=== PATIENT | male | born 1970 | race Caucasian/White ===

== ENCOUNTER 2020-03-03 10:42 | Emergency (ER) | payer SELFPAY ==
--- NOTE | 2020-03-03 10:57 | XR_ITS ---
WS: [id number] Right hand, 3 views, 03/03/2020 Clinical Data: injury Comparison: Right hand, 04/03/2019 Findings: There is a comminuted fracture of the base of the right fifth metacarpal which is nondispla sky. No other fractures are seen. The joint spaces are normal. There is soft tissue swelling over the fracture site. XR/XR hand RT min 3V* [id number] Impression: Comminuted fracture of base of right fifth metacarpal.
== END 2020-03-03 11:00 | disposition left against medical advice (07) ==
LOC: ER 11:21
PROVIDERS: Emergency Provider Emergency Medicine
DX: Z53.21 Procedure and treatment not carried out due to patient leaving prior to being seen by health care provider (principal)
CPT/HCPCS: 73130; 99281

== ENCOUNTER 2020-03-03 15:21 | Emergency (ER) | payer SELFPAY ==
[2020-03-03 15:32] VITALS: BP 129/66; PULSE 99; RESP 18; TEMP 36.8; O2SAT 97; BMI 25.0
--- NOTE | 2020-03-03 15:53 | W.ED.EXTPRO ---
HPI - Extremity Problem General: Chief complaint: Extremity Injury, Upper Stated complaint: arm pain Time Seen by Provider: 03/03/20 15:52 History of Present Illness: HPI Narrative: Patient is a 49-year-old male who comes to the ED with right hand pain. Injury occurred 1 week ago. Patient states he was getting out of the top bunk bed of shelter and fell and he landed on his right fist. Associated symptoms: Deny chest pain, fever(s) or rash Review of Systems Const: Denies: fever(s), chills or fatigue Eyes: Denies: change in vision or eye discomfort ENMT: Denies: throat pain, odynophagia, nasal discharge or nasal congestion Card: Denies: chest pain, palpitations, edema, swelling of feet/ankles, dyspnea on exertion or orthopnea Resp: Denies: dyspnea, productive cough or non-productive cough GI: Denies: abdominal pain, nausea, vomiting, diarrhea, constipation or hematochezia : Denies: flank pain, difficulty urinating, dysuria or hematuria Musc: Reports: extremity pain (right hand pain); Denies: neck pain, back pain or extremity swelling Skin/Breast: Denies: rash or new lesions Neuro: Denies: headache(s), numbness in extremities or weakness in extremities Physical Exam Const: COMMON NORMALS: no acute distress, patient oriented x3 and alert GENERAL APPEARANCE: cooperative and comfortable HENMT: COMMON NORMALS: normocephalic HEAD & SCALP: normocephalic MOUTH: Normal oral and palatal mucosa present THROAT: posterior oropharynx normal and uvula midline Neck/C-Spine: COMMON NORMALS: supple GENERAL: Yes normal visual inspection Resp: COMMON NORMALS: normal respiratory effort, No retractions, No use of accessory muscles and clear to auscultation bilaterally AUSCULTATION: clear to auscultation bilaterally Cardio: COMMON NORMALS: regular rate, regular rhythm, S1 normal heart sound present, S2 normal heart sound present, No gallops present (Cardio), No clicks present (Cardio), No murmurs present (Cardio) and Peripheral pulses 2+ throughout RATE: regular rate RHYTHM: regular rhythm HEART SOUNDS: S1 normal heart sound present and S2 normal heart sound present PERIPHERAL PULSES: Peripheral pulses 2+ throughout GI: COMMON NORMALS: Normal to inspection, nondistended, normoactive bowel sounds present, Soft to palpation, non-tender and no masses PALPATION: Yes Soft to palpation : COMMON NORMALS: Yes no CVA tenderness BLADDER/KIDNEY EXAM: Yes no CVA tenderness Back/Pelvis: COMMON NORMALS: no CVA tenderness Extremity: GENERAL: Yes normal exam except as noted RIGHT UPPER EXTREMITY: Yes hand & digits Right hand and digits: Yes inspection (swelling on palmar hand just below 5th digit.), Yes palpation (tender on hand) and Yes neurovascular exam (intact) Neuro: COMMON NORMALS: patient oriented x3 and moves all extremities SENSORIUM/ORIENTATION: Yes alert Skin: COMMON NORMALS: no rashes or lesions noted GENERAL SKIN EXAM: no rashes or lesions noted and dry skin Course Vital Signs: Vital signs: Vital Signs Temperature 98.3 F 03/03/20 15:32 Pulse Rate 101 H 03/03/20 16:40 Respiratory Rate 14 03/03/20 16:40 Blood Pressure 147/74 03/03/20 16:40 Pulse Oximetry 95 03/03/20 16:40 MDM - Extremity (Nontraumatic) MDM Narrative: Medical decision making narrative: Patient is a 49-year-old male comes to the ED with right hand pain. X-ray showed boxer fracture. Patient was put in an ulnar gutter splint and an Ortho referral was made with case management. Patient was given a written prescription for hydrocodone and Zofran for nausea. Imaging Data^: Xray Ortho: Attestation: I personally reviewed and interpreted this imaging study as follows: Radiologist's impression: [place] [address] XRay Report Signed Patient: Aeln Sage Unit #: [id number] : 1970 Age/Sex: 49 / M ADM Date: 03/03/20 Loc: ER Room/Bed: Attending Dr: Ordering Provider/Ordering MD: Bárbara Calderon MD Date of Service: 03/03/20 Procedure(s): XR hand RT min 3V* [id number] Accession Number(s): [id number] Report Number: [id number] WS: [id number] Right hand, 3 views, 03/03/2020 Clinical Data: injury Comparison: Right hand, 04/03/2019 Findings: There is a comminuted fracture of the base of the right fifth metacarpal which is nondisplaced. No other fractures are seen. The joint spaces are normal. There is soft tissue swelling over the fracture site. XR/XR hand RT min 3V* [id number] Impression: Comminuted fracture of base of right fifth metacarpal. Dictated By: Mai Rajput MD Signed By: Mai Rajput MD Signed Date/Time: 03/03/20 1343 DD/ 1342 Discharge Plan Discharge Patient Disposition: Home, Self-Care Clinical Impression: Boxer's fracture Qualifiers: Encounter type: initial encounter Fracture type: closed Qualified Code(s): S62.339A - Displaced fracture of neck of unspecified metacarpal bone, initial encounter for closed fracture Condition: Stable Prescriptions: New Zofran 4 mg tablet 4 mg PO Q6H PRN (Reason: nausea and vomiting) Qty: 14 RF: 0 Discharge Orders: Discharge Order (Routine); Ordered 03/03/20 Ordered By: Nicholas Jack Discharge Diet: Regular Discharge Activity: Limit activity as instructed Patient Instructions: Boxer Fracture (ED) Activity Restrictions/Additional Instructions: Follow-up with medical provider as directed. [facility] ortho should be contacting you the next several days to setup an appointment. Take medications as prescribed. Return to the ER or your medical provider if condition worsens. Please read and understand discharge instructions. If any questions, please ask. Discharge Date/Time: 03/03/20 16:42 Coding Level of Care Code ED [employer] Off Bearer for [facility] Fwlex Exam Comprehensive
[2020-03-03] MEDS: ondansetron 4 MG Tablet PO (16:31)
[2020-03-03] MEDS: HYDROcodone-acetaminophen 7.5-325 mg Tablet 1 TAB PO (16:31)
[2020-03-03 16:40] VITALS: BP 147/74; PULSE 101; RESP 14; O2SAT 95
--- NOTE | 2020-03-04 08:51 | DCPLANNER ---
Addendum entered by Maricarmen Tanner 03/04/20 15:29: Pat from ortho called manager case stating that clinic was not able to reach patient at this time, and unable to leave a voicemail. No appointment has been scheduled at this time, due to not being able to reach patient. Original Note: business area manager had message to schedule a follow up appointment for patient with ortho. business area manager called the ortho clinic, spoke with Pat, gave clinic patients information. business area manager was told that patients information would be printed and reviewed. Clinic will call patient with appointment information.
== END 2020-03-03 16:42 | disposition home or self-care (01) ==
PROVIDERS: Emergency Provider Physician Assistant
DX: S62.346A Nondisplaced fracture of base of fifth metacarpal bone, right hand, initial encounter for closed fracture (principal); W06.XXXA Fall from bed, initial encounter; Y92.143 Cell of prison as the place of occurrence of the external cause
CPT/HCPCS: 12345; 29125; 99281; 99283; A4590; Q0162

== ENCOUNTER 2020-08-15 11:43 | Emergency (ER) | payer SELFPAY ==
[2020-08-15 11:52] VITALS: BP 162/117; PULSE 85; RESP 14; TEMP 36.8; O2SAT 100; BMI 28.2
--- NOTE | 2020-08-15 12:07 | XRR_ITS ---
PROCEDURE INFORMATION: Exam: XR Right Wrist Exam date and time: 08/15/2020 12:12 PM Age: 50 years old Clinical indication: Pain; Hand and wrist; Right; Additional info: Wrist pain TECHNIQUE: Imaging protocol: XR Right wrist. Views: Frontal, lateral, and oblique views. COMPARISON: CR XR hand RT min 3V* [id number] 03/03/2020 11:24 AM FINDINGS: Bones/joints: Acute fracture of the dorsal medial distal 5th metacarpal metaphysis extending into the anterolateral metadiaphysis with minimal displacement. Healed proximal 5th metacarpal intra-articular fracture. 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 The radiocarpal, intercarpal and carpometacarpal alignment is otherwise unremarkable. 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 Soft tissues: Moderate dorsomedial metacarpal soft tissue swelling. No ectopic gas or foreign body identified. XR/XR wrist RT min 3V* [id number] IMPRESSION: 1. Acute fracture distal 5th metacarpal. 2. Healed proximal 5th metacarpal intra-articular fracture. 3. 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
--- NOTE | 2020-08-15 12:11 | XRR_ITS ---
PROCEDURE INFORMATION: Exam: XR Right Hand Exam date and time: 08/15/2020 12:27 PM Age: 50 years old Clinical indication: Pain; Hand and wrist; Right; Additional info: RT hand pain TECHNIQUE: Imaging protocol: XR Right hand. Views: Frontal, lateral, and oblique views. COMPARISON: CR XR hand RT min 3V* [id number] 03/03/2020 11:24 AM FINDINGS: Bones/joints: Acute minimally displaced fracture of the distal 5th metacarpal. Healed chronic intra-articular fracture of the 5th carpometacarpal articulation with secondary osteoarthritis. Soft tissues: Dorsomedial soft tissue swelling of the hand. XR/XR hand RT min 3V* [id number] IMPRESSION: 1. Acute minimally displaced fracture distal 5th metacarpal. Please see the right wrist radiographs report of the same date for additional findings. 2. Healed chronic intra-articular fracture 5th carpometacarpal articulation with secondary osteoarthritis.
--- NOTE | 2020-08-15 12:22 | W.ED.EXTPRO ---
HPI - Extremity Problem General: Chief complaint: Extremity Problem,Nontraumatic Stated complaint: right hand injury Time Seen by Provider: 08/15/20 11:58 Source: patient Mode of arrival: ambulatory Limitations: no limitations History of Present Illness: HPI Narrative: 50-year-old male patient presents to the emergency department with right hand and wrist pain. He reports utilizing/swinging a hammer 2 days ago at onset of pain. He reports previous fracture in January 2020, sustained boxer's fracture to the same hand. He denies injury or trauma that would have led to today's pain. States has not taken anything for pain, he reports pain and swelling to the area. MD Complaint: extremity pain (rt hand and rt wrist) Location: right and upper extremity Severity scale (1-10): 6 Quality: aching and dull Radiation: distal Relieving factors: immobilization and rest Exacerbating factors: exertion Associated symptoms: Reports no associated symptoms; Deny chest pain, fever(s) or rash Review of Systems General: Reports: 10 or more systems reviewed and unremarkable except in HPI and below Const: Denies: fever(s), chills or diaphoresis Eyes: Denies: blurry vision or eye redness ENMT: Denies: throat pain, dental pain or disequilibrium Card: Denies: chest pain, palpitations or irregular heart rhythm Resp: Denies: dyspnea, productive cough, non-productive cough or wheezing GI: Denies: abdominal pain, nausea or vomiting : Denies: difficulty urinating, dysuria or difficulty starting urination Musc: Reports: extremity pain (rt hand) and extremity swelling (rt hand and wrist); Denies: neck pain, back pain, joint pain or joint warmth Skin/Breast: Denies: rash or pruritus Neuro: Denies: headache(s), weakness in extremities or behavioral changes Psych: Denies: anxiety or depression Vishnu/Lymph: Denies: easy bruising Physical Exam Const: COMMON NORMALS: no acute distress, patient oriented x3, healthy appearing and alert GENERAL APPEARANCE: cooperative, comfortable and well hydrated HENMT: COMMON NORMALS: normocephalic, Normal external nose present and moist oral mucous membranes HEAD & SCALP: normocephalic NOSE: Normal external nose present Eye: COMMON NORMALS: Equal, round and reactive pupils present and EOMs intact bilaterally GENERAL EYE: appearance normal, both eyes and all related structures PUPIL: Yes Equal, round and reactive pupils present Neck/C-Spine: COMMON NORMALS: full ROM and no lymphadenopathy GENERAL: Yes normal visual inspection and Yes trachea midline CERVICAL SPINE: Yes cervical ROM normal Lymph: LYMPHATIC: no lymphadenopathy noted Chest: COMMONS NORMALS: normal inspection of the chest Resp: COMMON NORMALS: normal respiratory effort and clear to auscultation bilaterally AUSCULTATION: clear to auscultation bilaterally Cardio: COMMON NORMALS: regular rhythm, S1 normal heart sound present and S2 normal heart sound present RHYTHM: regular rhythm HEART SOUNDS: S1 normal heart sound present and S2 normal heart sound present GI: COMMON NORMALS: Soft to palpation and non-tender INSPECTION: Yes normal to inspection PALPATION: Yes Soft to palpation : COMMON NORMALS: Yes no CVA tenderness BLADDER/KIDNEY EXAM: Yes no CVA tenderness Back/Pelvis: COMMON NORMALS: no CVA tenderness and thoracic and lumbar spine normal to inspection Extremity: COMMON NORMALS: normal to inspection, full ROM and capillary refill normal RIGHT UPPER EXTREMITY: Yes wrist (pain with palpation) Right wrist: Yes inspection, Yes palpation (pain to the dorsal wrist), Yes ROM (supination/pronation intact but with pain) and Yes neurovascular exam (distally intact) and Yes hand & digits Right hand and digits: Yes inspection (edema present to the dorsal hand), Yes palpation (pain dorsally), Yes ROM exam (pain with flexion/extension of the digits), Yes neurovascular exam (distally intact) and Yes tendon exam (intact but with pain) Neuro: COMMON NORMALS: patient oriented x3 and no focal motor deficits SENSORIUM/ORIENTATION: Yes alert Psych: COMMON NORMALS: mental status grossly normal, Normal thought process present and cooperative ACTIVITY/MOTOR BEHAVIOR: Yes appropriate eye contact THOUGHT PROCESS: Normal thought process present Skin: COMMON NORMALS: no rashes or lesions noted and turgor normal GENERAL SKIN EXAM: no rashes or lesions noted and turgor normal Course Vital Signs: Vital signs: Vital Signs Temperature 98.2 F 08/15/20 11:52 Pulse Rate 85 08/15/20 11:52 Respiratory Rate 14 08/15/20 11:52 Blood Pressure 162/117 08/15/20 11:52 Pulse Oximetry 100 08/15/20 11:52 Discharge Plan Discharge Patient Disposition: Home Clinical Impression: Muscle strain of right wrist Qualifiers: Encounter type: initial encounter Qualified Code(s): S66.911A - Strain of unspecified muscle, fascia and tendon at wrist and hand level, right hand, initial encounter Acute wrist pain Qualifiers: Laterality: right Qualified Code(s): M25.531 - Pain in right wrist Condition: Stable Prescriptions: New naproxen 500 mg tablet 500 mg PO Q12H PRN (Reason: pain) Qty: 30 RF: 0 No Action Zofran 4 mg tablet 4 mg PO Q6H PRN (Reason: nausea and vomiting) Qty: 14 RF: 0 Discharge Orders: Discharge ED (Routine); Ordered 08/15/20 Ordered By: Natalie Bang Discharge Diet: Usual diet Discharge Activity: Limit activity as instructed Patient Instructions: Wrist Injury (ED), Splint Care (ED) Activity Restrictions/Additional Instructions: Radiology exam today did not reveal acute fracture, radiology interpretation pending. Follow-up with your primary care provider if not improved in 5 to 7 days Return to the emergency department if you develop worsening pain, increased swelling of the right arm Warm moist compresses several times daily alternate with cool compresses, keep the right upper extremity elevated to help with swelling. Wear Velcro wrist splint to help with pain and swelling. Wear at night and during the day with activity to help with pain Coding Level of Care Code ED Wellness Manager for [facility] Stout Exam Comprehensive
[2020-08-15] MEDS: naproxen 500 mg Tablet PO (12:25)
--- NOTE | 2020-08-16 16:35 | PC.NURSE ---
ANNIKA Estrada had this RN call patient to have him return to the ER to have a splint placed. This RN contacted patient at 0823 but did not answer but message left on phone. Patient called back at 0930 to report he would come back in. ANNIKA Estrada reports patient returned to the ER and she placed a ulnar gutter splint on the patient and sent him back home.
--- NOTE | 2020-08-18 08:26 | DCPLANNER ---
systems software manager had message to schedule a follow up appointment for patient with ortho. systems software manager called the ortho clinic, spoke with Tresa, gave clinic patients information. systems software manager was told that patients information would be printed and reviewed. Clinic will call patient with appointment information.
--- NOTE | 2020-08-20 13:48 | DCPLANNER ---
Patient had a follow up appointment scheduled for 08.19.20 with ortho - patient did attend appointment.
== END 2020-08-15 13:54 | disposition home or self-care (01) ==
PROVIDERS: Emergency Provider Nurse Practitioner Family
DX: S66.911A Strain of unspecified muscle, fascia and tendon at wrist and hand level, right hand, initial encounter (principal); X50.9XXA Other and unspecified overexertion or strenuous movements or postures, initial encounter
CPT/HCPCS: 12345; 29125; 73110; 73130; 99281; 99283

== ENCOUNTER → 2020-09-09 11:38 | Outpatient (BNVA) | payer SELFPAY | PROVIDERS: Visit Provider Orthopaedic Surgery | DX: Z47.89 Encounter for other orthopedic aftercare (principal); S62.308D Unspecified fracture of other metacarpal bone, subsequent encounter for fracture with routine healing; X58.XXXD Exposure to other specified factors, subsequent encounter | CPT/HCPCS: 73130 ==

== ENCOUNTER → 2020-09-30 08:50 | Outpatient (BNVA) | payer SELFPAY | PROVIDERS: Visit Provider Orthopaedic Surgery | DX: S62.396D Other fracture of fifth metacarpal bone, right hand, subsequent encounter for fracture with routine healing (principal); X58.XXXD Exposure to other specified factors, subsequent encounter | CPT/HCPCS: 73130 ==

== ENCOUNTER → 2020-10-23 10:24 | Outpatient (BNVA) | payer SELFPAY | PROVIDERS: Visit Provider Orthopaedic Surgery | DX: Z47.89 Encounter for other orthopedic aftercare (principal); S62.308D Unspecified fracture of other metacarpal bone, subsequent encounter for fracture with routine healing; X58.XXXD Exposure to other specified factors, subsequent encounter | CPT/HCPCS: 73130 ==

== ENCOUNTER 2020-10-29 08:00 | Outpatient (CLI) | payer SELFPAY ==
--- NOTE | 2020-10-29 08:00 | CT_ITS ---
WS: [id number] CT RIGHT HAND HISTORY: S62.308A - Unspecified fracture of other metacarpal bone, initial encounter for closed fract ure Technique: All CT scans at [facility] use at least one of these dose optimization techniq ues: automated exposure control; mA and/or kV adjustment per patient size (includes targeted exams wh ere dose is matched to clinical indication); or iterative reconstruction. DLP: 495.86 mGycm COMPARISON: 10/23/2020 radiographs, 03/03/2020 and 04/03/2019. Oblique fractures again identified through the fifth carpal neck and head. Fracture line is still paz dent although there is partial healing. Deformity from a healing fracture and mild shortening of the metacarpal. There is additional erosive type degenerative changes involving the proximal fifth metacarpal. The ca rpal metacarpal articulation is narrowed with erosive changes involving both the hamate and proximal metacarpal. There was a fracture present and described on 03/03/2020. These changes are new since 04/03. No additional fractures are identified. There are small lucencies in the scaphoid and lunate. No soft tissue edema is evident. CT/CT hand RT wo con* [id number] IMPRESSION: 1. Partially healed oblique fracture distal fifth metacarpal. 2. Erosive changes with joint space narrowing involving the hamate and proxima l fifth metacarpal. Comminuted fracture was present at this location on 03/03/20 20. There may have been a infection or chronic mild osteomyelitis. On the prior study of 04/03/2019 there was a normal articulation at this level. These findin gs are probably all posttraumatic and probably related to posttraumatic arthrit is.
== END 2020-10-29 08:01 | disposition home or self-care (01) ==
LOC: RADWPI 08:04
PROVIDERS: Visit Provider Orthopaedic Surgery
DX: S62.306A Unspecified fracture of fifth metacarpal bone, right hand, initial encounter for closed fracture (principal); X58.XXXA Exposure to other specified factors, initial encounter
CPT/HCPCS: 73200

== ENCOUNTER 2020-12-07 14:13 | Emergency (ER) | payer SELFPAY ==
[2020-12-07 14:20] VITALS: BP 127/90; PULSE 108; RESP 18; O2SAT 97; BMI 29.5
--- NOTE | 2020-12-07 14:26 | XRR_ITS ---
PROCEDURE INFORMATION: Exam: XR Right Hand Exam date and time: 12/07/2020 2:30 PM Age: 50 years old Clinical indication: Pain; Hand; Right; Additional info: Swelling TECHNIQUE: Imaging protocol: XR Right hand. Views: 3 or more views. COMPARISON: No relevant prior studies available. FINDINGS: Bones/joints: No fracture or dislocation. There is focal lucencies along the base of the 5th metacarpal, which may represent cystic subchondral changes of degenerative disease. Osteomyelitis should be considered in the adequate clinical setting. Soft tissues: Swelling of the soft tissues is present. XR/XR hand RT min 3V* [id number] IMPRESSION: Focal lucencies along the base of the 5th metacarpal, which may represent degenerative changes, or osteomyelitis in the adequate clinical setting.
--- NOTE | 2020-12-07 14:26 | W.ED.EXTPRO ---
HPI - Extremity Problem General: Chief complaint: Extremity Injury, Upper Stated complaint: RIGHT HAND INJURY Time Seen by Provider: 12/07/20 14:18 History of Present Illness: HPI Narrative: Patient complains about right hand pain after he fell it pop when he was moving somebody today. He has a history of fractured hand few months ago that is been repaired. MD Complaint: extremity pain and joint swelling Onset (ago): hour(s) Pain Consistency: constant Location: right and upper extremity Severity scale (1-10): 3 Quality: aching Radiation: none Relieving factors: nothing Exacerbating factors: exertion Associated symptoms: Reports no associated symptoms; Deny fever(s) Review of Systems Const: Denies: fever(s) or chills Musc: Reports: extremity pain (Right hand hurts and is swollen patient has follow-up appointment Láz[facility]) and other (Follow-up appointment [place] for looking in hand again) Psych: Denies: anxiety PFSH ED PFSH: Social History Smoking and tobacco status: current some day smoker cigarettes Physical Exam Const: COMMON NORMALS: no acute distress Extremity: RIGHT UPPER EXTREMITY: Yes hand & digits (Fifth metacarpal area swollen tender to touch) Psych: OTHER: Patient appears very fidgety and paranoid. Course Vital Signs: Vital signs: Vital Signs Pulse Rate 108 H 12/07/20 14:20 Respiratory Rate 18 12/07/20 14:20 Blood Pressure 127/90 12/07/20 14:20 Pulse Oximetry 97 12/07/20 14:20 MDM - Extremity (Nontraumatic) MDM Narrative: Medical decision making narrative: Patient is a got up in the left after he accused people of talking about him. Which he accuses girls at the desktop technician also doing that while he said in waiting room.. Anxious paranoid. Patient did not wait to receive x-ray report. Patient left here untreated. Discharge Plan Discharge Patient Disposition: Left Against Medical Advice Condition: Stable Prescriptions: No Action No Known Home Medications RF: 0 Coding Level of Care Code ED Junior Systems Administrator for [facility] Fwd Exam Expanded Problem Focused
--- NOTE | 2020-12-07 14:45 | PC.NURSE ---
patient walked out the department.
== END 2020-12-07 14:48 | disposition left against medical advice (07) ==
LOC: ER 14:55
PROVIDERS: Emergency Provider Nurse Practitioner Family
DX: M79.641 Pain in right hand (principal); Z53.21 Procedure and treatment not carried out due to patient leaving prior to being seen by health care provider; F17.210 Nicotine dependence, cigarettes, uncomplicated
CPT/HCPCS: 73130; 99281

== ENCOUNTER 2021-07-14 22:29 | Emergency (ER) | payer MEDICAID, SELFPAY ==
[2021-07-14 22:35] VITALS: BP 173/110; PULSE 99; RESP 16; TEMP 36.7; O2SAT 97; BMI 27.8
--- NOTE | 2021-07-14 22:52 | ED_ITS ---
HPI - Wound/Laceration General: Chief Complaint: Wound/Laceration Stated Complaint: Injury Lt Hand Finger Time Seen by Provider: 07/14/21 22:45 Source: patient Mode of arrival: ambulatory Limitations: no limitations History of Present Illness: HPI narrative: 51-year-old male states that he was cutting plastic bottle roughly 30 minutes ago and slipped and lacerated his left index finger he does have a 1 cm laceration at the base of his index finger. He denies any loss sensation or strength denies any other injuries last tetanus was within 5 years. Associated symptoms: Denies chills, fever(s), nausea or vomiting Review of Systems Const: Denies: fever(s), chills, body aches or change in appetite Eyes: Denies: blurry vision or eye discomfort ENMT: Denies: throat pain or dental pain Card: Denies: chest pain Resp: Denies: dyspnea GI: Denies: abdominal pain, nausea, vomiting or diarrhea : Denies: dysuria Musc: Reports: extremity pain Skin/Breast: Denies: rash Neuro: Denies: headache(s) Psych: Denies: depression Vishnu/Lymph: Denies: easy bruising All/Imm: Denies: urticaria PFSH ED PFSH: Social History Smoking and tobacco status: current some day smoker cigarettes Physical Exam Const: COMMON NORMALS: no acute distress, patient oriented x3 and healthy appe aring HENMT: COMMON NORMALS: normocephalic and atraumatic HEAD & SCALP: normocephalic and atraumatic Eye: COMMON NORMALS: Equal, round and reactive pupils present and EOMs intact bilaterally PUPIL: Yes Equal, round and reactive pupils present Neck/C-Spine: COMMON NORMALS: full ROM and supple Chest: COMMONS NORMALS: normal inspection of the chest and normal palpation of entire chest wall Resp: COMMON NORMALS: normal respiratory effort, No retractions, No use of accessory muscles and clear to auscultation bilaterally AUSCULTATION: clear to auscultation bilaterally Cardio: COMMON NORMALS: regular rate, regular rhythm and No murmurs present (Cardio) RATE: regular rate RHYTHM: regular rhythm GI: COMMON NORMALS: Normal to inspection, nondistended, normoactive bowel sounds present, Soft to palpation, non-tender and no masses PALPATION: Yes Soft to palpation Extremity: COMMON NORMALS: normal to inspection and full ROM NARRATIVE EXTREMITY EXAM: 1 cm laceration to base of left index finger over the dorsum of the hand he has full sensation and strength intact distally Neuro: COMMON NORMALS: patient oriented x3, moves all extremities and no focal motor deficits Psych: COMMON NORMALS: mental status grossly normal, Normal thought process present and cooperative THOUGHT PROCESS: Normal thought process present Skin: COMMON NORMALS: no rashes or lesions noted and no wounds GENERAL SKIN EXAM: no rashes or lesions noted Procedures Laceration Laceration 1: Site: upper extremity and hand Side (If applicable): left Size (cm): 1 Description: linear Depth: simple, single layer Local Anesthetic: lidocaine 1% Amount of anesthesia used (mL): 5 Pre-repair: wound explored and irrigated extensively Skin layer closed with: nylon Size (cm): 5-0 Number of sutures: 3 Technique: simple, interrupted Course Vital Signs: Vital signs: Vital Signs Temperature 98.0 F 07/14/21 22:35 Pulse Rate 99 07/14/21 22:35 Respiratory Rate 16 07/14/21 22:35 Blood Pressure 173/110 07/14/21 22:35 Pulse Oximetry 97 07/14/21 22:35 MDM - Wound/Laceration MDM Narrative: Medical decision making narrative: Patient presents with finger laceration repaired with sutures he is well-appearing here he said the sutures removed in 7 days watch for any signs of infection wound was irrigated thoroughly. No signs of tendon involvement he is stable for discharge return if worsening. Discharge Plan Discharge Patient Disposition: Home Clinical Impression: Laceration Condition: Stable Prescriptions: No Action No Known Home Medications RF: 0 Discharge Orders: Discharge ED (Routine); Ordered 07/14/21 Ordered By: Bárbara Calderon Discharge Diet: Advance as tolerated Discharge Activity: Resume usual activity Patient Instructions: Laceration (ED) Activity Restrictions/Additional Instructions: suture removal in 7 days return if any signs of infection Coding Level of Care Code ED Emergency Room Clerk for Erickson Stout
--- NOTE | 2021-07-14 23:13 | PC.NURSE ---
Nonadherent dressing and Kerlix applied. Pt tolerated well. Wound care discussed; verbalized understanding.
[2021-07-14 23:14] VITALS: BP 171/99; PULSE 80; RESP 16; O2SAT 98
== END 2021-07-14 23:15 | disposition home or self-care (01) ==
PROVIDERS: Emergency Provider Emergency Medicine
DX: S61.211A Laceration without foreign body of left index finger without damage to nail, initial encounter (principal); F17.210 Nicotine dependence, cigarettes, uncomplicated
CPT/HCPCS: 12001; 99282

== ENCOUNTER 2021-08-04 16:34 | Emergency (ER) | payer MEDICAID, SELFPAY ==
[2021-08-04 16:39] VITALS: BP 117/78; PULSE 65; RESP 18; TEMP 36.4; O2SAT 93; BMI 22.4
--- NOTE | 2021-08-04 16:42 | ECG_ITS ---
[facility] Test Date: 2021-08-04 Pat Name: Alen Sage Department: Room: Gender: Male Post Closer: : 1970 Requested By: Jesse Green Order Number: [id number] Tracy MD: Aubree Nguyen M.D. Measurements Intervals [place] Rate: 65 P: 87 MN: 160 QRS: 84 QRSD: 106 T: 84 QT: 457 QTc: 476 Interpretive Statements SINUS RHYTHM PROLONGED QT INTERVAL Compared to ECG 10/28/2017 15:13:42 Prolonged QT interval now present Electronically Signed On 08-05-2021 0:15:01 PREPARATION SUPERVISOR FREEZING by Aubree Nguyen M.D. [id number]
--- NOTE | 2021-08-04 16:42 | CTR_ITS ---
PROCEDURE INFORMATION: Exam: CT Head Without Contrast Exam date and time: 08/04/2021 4:42 PM Age: 51 years old Clinical indication: Altered mental status/memory loss TECHNIQUE: Imaging protocol: Computed tomography of the head without contrast. Radiation optimization: All CT scans at this facility use at least one of these dose optimization techniques: automated exposure control; mA and/or kV adjustment per patient size (includes targeted exams where dose is matched to clinical indication); or iterative reconstruction. COMPARISON: CT head wo con* [id number] 09/24/2016 9:14 PM RADIATION DOSE METRICS: Total DLP (mGy-cm): 1660.09 FINDINGS: Brain: Normal. No hemorrhage. Unremarkable white matter. No mass effect. Cerebral ventricles: No ventriculomegaly. Paranasal sinuses: Visualized sinuses are unremarkable. No fluid levels. Mastoid air cells: Visualized mastoid air cells are well aerated. Bones/joints: Unremarkable. No acute fracture. Soft tissues: Unremarkable. CT/CT head wo con* [id number] IMPRESSION: No acute intracranial abnormality.
--- NOTE | 2021-08-04 16:42 | XRR_ITS ---
PROCEDURE INFORMATION: Exam: XR Chest Exam date and time: 08/04/2021 4:42 PM Age: 51 years old Clinical indication: Cough and dyspnea; Additional info: Dyspnea/cough TECHNIQUE: Imaging protocol: XR of the chest. Views: 1 view. COMPARISON: CR Chest 1 [place] [id number] 10/28/2017 3:29 PM FINDINGS: Lungs: Subtle opacity at the right lung base representing infiltrates. Pleural spaces: Unremarkable. No pleural effusion. No pneumothorax. Heart/Mediastinum: Unremarkable. No cardiomegaly. Bones/joints: Unremarkable. XR/XR chest 1V portable [id number] IMPRESSION: Subtle opacity at the right lung base representing infiltrates.
--- NOTE | 2021-08-04 16:50 | PC.PHAR ---
pt is intoxicated and unable to verify medications-no meds pull up on ext med history [facility] pharmacy states they last filled in 2018 for the pt
[2021-08-04 16:51] VITALS: BP 138/91; PULSE 69; RESP 19; O2SAT 100
--- NOTE | 2021-08-04 16:53 | PC.NURSE ---
Arouses with painful stimuli
--- NOTE | 2021-08-04 17:34 | ED_ITS ---
Documented by User: Jesse Mcqueen DO 08/06/21 07:51 HPI - Alcohol General: Chief Complaint: Altered Mental Status Stated Complaint: ETOH Time Seen by Provider: 08/04/21 16:38 History of Present Illness: HPI narrative: 51-year-old male heavily intoxicated presents to the emergency room after his family called EMS because he had passed on the front yard he was unable to stand he was poorly responsive. In the ER he will respond to questions and mumble a few answers he admits to drinking very heavily today he denies any suicidal or homicidal ideation just by shaking his head. Other than that he is not very verbal. MD complaint: alcohol intoxication Chronic alcohol use: Yes Previous visits for alcohol intoxication: Yes Recent trauma: No Associated symptoms: Deny abdominal pain, depression, diaphoresis, hematemesis, involuntary movements, melena, nausea, seizure-like activity, suicidal ideation, syncope or vomiting Treatments prior to arrival: none Review of Systems General: Reports: Other (Minimal review of systems some from the EMS. Patient markedly intoxicated.) Const: Denies: diaphoresis Card: Denies: syncope GI: Denies: abdominal pain, nausea, vomiting, hematemesis or melena Neuro: Denies: seizure-like activity or involuntary movements Psych: Denies: depression or suicidal ideation [facility] ED PFSH: Medical History (Updated 08/06/21 @ 07:49 by Jesse Mcqueen DO) Alcoholic intoxication (Unknown) Hypertension Methamphetamine abuse Surgical History (Updated 08/06/21 @ 07:50 by Jesse Mcqueen DO) No significant past surgical history Social History Smoking and tobacco status: current some day smoker cigarettes Physical Exam HENMT: COMMON NORMALS: normocephalic, atraumatic and hearing grossly normal bilaterally HEAD & SCALP: normocephalic and atraumatic Neck/C-Spine: COMMON NORMALS: no JVD Resp: COMMON NORMALS: normal respiratory effort, No retractions, No use of accessory muscles and clear to auscultation bilaterally AUSCULTATION: clear to auscultation bilaterally Cardio: COMMON NORMALS: no JVD, regular rate, regular rhythm and No murmurs present (Cardio) RATE: regular rate RHYTHM: regular rhythm GI: COMMON NORMALS: Soft to palpation and No hepatosplenomegaly present AUSCULTATION: Yes normoactive bowel sounds PALPATION: Yes Soft to palpation, No Tenderness to palpation present (GI), No Guarding due to palpation present (GI) and Yes No hepatosplenomegaly present Extremity: COMMON NORMALS: normal to inspection, capillary refill normal, no clubbing, cyanosis or edema, no calf tenderness and no pedal edema Skin: COMMON NORMALS: no rashes or lesions noted GENERAL SKIN EXAM: no rashes or lesions noted Course Vital Signs: Vital signs: Vital Signs Temperature 97.6 F 08/04/21 16:39 Pulse Rate 68 08/04/21 22:45 Respiratory Rate 18 08/04/21 22:45 Blood Pressure 140/86 08/04/21 22:45 Pulse Oximetry 100 08/04/21 22:45 MDM - Alcohol MDM Narrative: Medical decision making narrative: Care turned over to Dr. Calderon at change of see his note final diagnosis and disposition. Lab Data: Labs: Lab Results 08/04/21 08/04/21 08/04/21 17:42 17:42 17:42 WBC 9.7 10^3/uL 10^3/ uL (4.0-10.0) RBC 4.48 10^6/uL 10^6 /uL (4.1-5.3) Hgb 13.8 g/dL g/dL (11.7-16.6) Hct 42.1 % % (42.0-52.0) MCV 94.0 fl fl (80-94) MCH 30.8 pg pg (28.0-34.0) MCHC 32.8 g/dL g/dL (30.0-36.0) RDW 12.9 % % (12.1-15.1) Plt Count 283 10^3/cmm 10^3 /cmm (130-400) MPV 9.9 fL fL (7.4-10.4) Neut % (Auto) 60.9 % % Lymph % (Auto) 33.2 % % [place] % (Auto) 4.9 % % Eos % (Auto) 0.4 % % Baso % (Auto) 0.3 % % Neut # (Auto) 5.88 10^3/uL 10^3 /uL (1.8-7.7) Lymph # (Auto) 3.2 10^3/uL 10^3/ uL (0.8-4.8) [place] # (Auto) 0.5 10^3/uL 10^3/ uL (0.2-0.9) Eos # (Auto) 0.0 10^3/uL 10^3/ uL (0.0-0.8) Baso # (Auto) 0.0 10^3/uL 10^3/ uL (0.0-0.1) Nucleated RBC % (a uto) 0 % % Nucleated RBCs # 0.0 /100WBC /100W BC Sodium 139 mmol/L mmol/L (136-145) Potassium 3.8 mmol/L mmol/L (3.5-5.1) Chloride 104 mmol/L mmol/L (98-107) Carbon Dioxide 20 mmol/L L mmol/ L (22-29) Anion Gap 18.8 (5-19) BUN 11 mg/dL mg/dL (6-20) Creatinine 1.2 mg/dL mg/dL (0.7-1.2) GFR Calculation 64.4 mL/min L mL/ min (90-130) Glucose 109 mg/dL mg/dL (65-115) Calculated Osmolal ity 288 mOsm/kg mOsm/ kg (285-295) Lactic Acid 1.9 mmol/L mmol/L (0.5-2.2) Calcium 8.2 mg/dL L mg/dL (8.5-10.5) Total Bilirubin 0.2 mg/dL mg/dL (0.15-1.2) AST 42 U/L H U/L (0-40) ALT 62 U/L H U/L (0-41) Alkaline Phosphata se 108 IU/L IU/L (40-130) Troponin T Baselin e Troponin T 120 Min [place] Troponin T Total Protein 6.7 g/dL g/dL (6.6-8.7) Albumin 4.2 g/dL g/dL (3.5-5.2) Globulin 2.5 g/dL g/dL (1.3-4.6) Lipase 23 U/L U/L (13-60) Urine Color Urine Appearance Urine pH Ur Specific Gravit y Urine Protein Urine Glucose (UA) Urine Ketones Urine Blood Urine Nitrate Urine Bilirubin Urine Urobilinogen Ur Leukocyte Veronique ase Salicylates < 0.3 mg/dL L mg/ dL (3-10) Urine Opiates Scre en Acetaminophen < 5.0 ug/mL L ug/ mL (10-30) Ur Barbiturates Sc reen Ur Phencyclidine S crn Ur Amphetamines Sc reen U Benzodiazepines Scrn Urine Cocaine Scre en U Marijuana (THC) Screen Ethyl Alcohol 08/04/21 08/04/21 08/04/21 17:42 17:42 20:35 WBC RBC Hgb Hct MCV MCH MCHC RDW Plt Count MPV Neut % (Auto) Lymph % (Auto) [place] % (Auto) Eos % (Auto) Baso % (Auto) Neut # (Auto) Lymph # (Auto) [place] # (Auto) Eos # (Auto) Baso # (Auto) Nucleated RBC % (a uto) Nucleated RBCs # Sodium Potassium Chloride Carbon Dioxide Anion Gap BUN Creatinine GFR Calculation Glucose Calculated Osmolal ity Lactic Acid Calcium Total Bilirubin AST ALT Alkaline Phosphata se Troponin T Baselin e 9 ng/L ng/L (0-15) Troponin T 120 Min [place] Troponin T Total Protein Albumin Globulin Lipase Urine Color Yellow (Yellow) Urine Appearance Clear (CLEAR) Urine pH 5 (5-7) Ur Specific Gravit y 1.015 (1.005-1.030) Urine Protein Neg (Negative) Urine Glucose (UA) Norm (Normal) Urine Ketones Negative (Negative) Urine Blood Neg (Negative) Urine Nitrate Negative (Negative) Urine Bilirubin Neg (Negative) Urine Urobilinogen Norm mg/dL mg/dL (Negative) Ur Leukocyte Veronique ase Negative (Negative) Salicylates Urine Opiates Scre en Acetaminophen Ur Barbiturates Sc reen Ur Phencyclidine S crn Ur Amphetamines Sc reen U Benzodiazepines Scrn Urine Cocaine Scre en U Marijuana (THC) Screen Ethyl Alcohol 246 mg/dL H mg/dL (0-10) 08/04/21 08/04/21 20:35 20:36 WBC RBC Hgb Hct MCV MCH MCHC RDW Plt Count MPV Neut % (Auto) Lymph % (Auto) [place] % (Auto) Eos % (Auto) Baso % (Auto) Neut # (Auto) Lymph # (Auto) [place] # (Auto) Eos # (Auto) Baso # (Auto) Nucleated RBC % (a uto) Nucleated RBCs # Sodium Potassium Chloride Carbon Dioxide Anion Gap BUN Creatinine GFR Calculation Glucose Calculated Osmolal ity Lactic Acid Calcium Total Bilirubin AST ALT Alkaline Phosphata se Troponin T Baselin e Troponin T 120 Min [place] 7.72 ng/L ng/L (0-15) Delta Troponin T -1.28 ABS# L ABS# (0-10) Total Protein Albumin Globulin Lipase Urine Color Urine Appearance Urine pH Ur Specific Gravit y Urine Protein Urine Glucose (UA) Urine Ketones Urine Blood Urine Nitrate Urine Bilirubin Urine Urobilinogen Ur Leukocyte Veronique ase Salicylates Urine Opiates Scre en Negative ng/mL ng /mL (Negative) Acetaminophen Ur Barbiturates Sc reen Negative ng/mL ng /mL (Negative) Ur Phencyclidine S crn Negative ng/mL ng /mL (Negative) Ur Amphetamines Sc reen Positive ng/mL H ng/mL (Negative) U Benzodiazepines Scrn Negative ng/mL ng /mL (Negative) Urine Cocaine Scre en Negative ng/mL ng /mL (Negative) U Marijuana (THC) Screen Negative ng/mL ng /mL (Negative) Ethyl Alcohol Discharge Plan Discharge Patient Disposition: Home Clinical Impression: Alcoholic intoxication, Methamphetamine abuse Condition: Stable Prescriptions: No Action Unable to Assess RF: 0 Discharge Orders: Discharge ED (Routine); Ordered 08/04/21 Ordered By: Bárbara Calderon Discharge Diet: Advance as tolerated Discharge Activity: Resume usual activity Patient Instructions: Alcohol Intoxication (ED) Coding Level of Care Code ED Fuel Conversion Technician for Chg Fwd Documented by User: Bárbara Calderon MD 08/04/21 22:04 HPI - Alcohol General: Chief Complaint: Altered Mental Status Stated Complaint: ETOH Time Seen by Provider: 08/04/21 16:38 PFSH ED PFSH: Medical History (Updated 08/06/21 @ 07:49 by Jesse Mcqueen DO) Alcoholic intoxication (Unknown) Hypertension Methamphetamine abuse Surgical History (Updated 08/06/21 @ 07:50 by Jesse Mcqueen DO) No significant past surgical history Social History Smoking and tobacco status: current some day smoker cigarettes Course Vital Signs: Vital signs: Vital Signs Temperature 97.6 F 08/04/21 16:39 Pulse Rate 68 08/04/21 22:45 Respiratory Rate 18 08/04/21 22:45 Blood Pressure 140/86 08/04/21 22:45 Pulse Oximetry 100 08/04/21 22:45 MDM - Alcohol MDM Narrative: Medical decision making narrative: Patient presents here with alcohol intoxication along with methamphetamine abuse. Patient is observed here is now ambulatory his mother's came to pick him up and feel he is stable for discharge CT head other blood work is all normal he is to follow-up PCP and return if worsening. Lab Data: Labs: Lab Results 08/04/21 08/04/21 08/04/21 17:42 17:42 17:42 WBC 9.7 10^3/uL 10^3/ uL (4.0-10.0) RBC 4.48 10^6/uL 10^6 /uL (4.1-5.3) Hgb 13.8 g/dL g/dL (11.7-16.6) Hct 42.1 % % (42.0-52.0) MCV 94.0 fl fl (80-94) MCH 30.8 pg pg (28.0-34.0) MCHC 32.8 g/dL g/dL (30.0-36.0) RDW 12.9 % % (12.1-15.1) Plt Count 283 10^3/cmm 10^3 /cmm (130-400) MPV 9.9 fL fL (7.4-10.4) Neut % (Auto) 60.9 % % Lymph % (Auto) 33.2 % % [place] % (Auto) 4.9 % % Eos % (Auto) 0.4 % % Baso % (Auto) 0.3 % % Neut # (Auto) 5.88 10^3/uL 10^3 /uL (1.8-7.7) Lymph # (Auto) 3.2 10^3/uL 10^3/ uL (0.8-4.8) [place] # (Auto) 0.5 10^3/uL 10^3/ uL (0.2-0.9) Eos # (Auto) 0.0 10^3/uL 10^3/ uL (0.0-0.8) Baso # (Auto) 0.0 10^3/uL 10^3/ uL (0.0-0.1) Nucleated RBC % (a uto) 0 % % Nucleated RBCs # 0.0 /100WBC /100W BC Sodium 139 mmol/L mmol/L (136-145) Potassium 3.8 mmol/L mmol/L (3.5-5.1) Chloride 104 mmol/L mmol/L (98-107) Carbon Dioxide 20 mmol/L L mmol/ L (22-29) Anion Gap 18.8 (5-19) BUN 11 mg/dL mg/dL (6-20) Creatinine 1.2 mg/dL mg/dL (0.7-1.2) GFR Calculation 64.4 mL/min L mL/ min (90-130) Glucose 109 mg/dL mg/dL (65-115) Calculated Osmolal ity 288 mOsm/kg mOsm/ kg (285-295) Lactic Acid 1.9 mmol/L mmol/L (0.5-2.2) Calcium 8.2 mg/dL L mg/dL (8.5-10.5) Total Bilirubin 0.2 mg/dL mg/dL (0.15-1.2) AST 42 U/L H U/L (0-40) ALT 62 U/L H U/L (0-41) Alkaline Phosphata se 108 IU/L IU/L (40-130) Troponin T Baselin e Troponin T 120 Min [place] Troponin T Total Protein 6.7 g/dL g/dL (6.6-8.7) Albumin 4.2 g/dL g/dL (3.5-5.2) Globulin 2.5 g/dL g/dL (1.3-4.6) Lipase 23 U/L U/L (13-60) Urine Color Urine Appearance Urine pH Ur Specific Gravit y Urine Protein Urine Glucose (UA) Urine Ketones Urine Blood Urine Nitrate Urine Bilirubin Urine Urobilinogen Ur Leukocyte Veronique ase Salicylates < 0.3 mg/dL L mg/ dL (3-10) Urine Opiates Scre en Acetaminophen < 5.0 ug/mL L ug/ mL (10-30) Ur Barbiturates Sc reen Ur Phencyclidine S crn Ur Amphetamines Sc reen U Benzodiazepines Scrn Urine Cocaine Scre en U Marijuana (THC) Screen Ethyl Alcohol 08/04/21 08/04/21 08/04/21 17:42 17:42 20:35 WBC RBC Hgb Hct MCV MCH MCHC RDW Plt Count MPV Neut % (Auto) Lymph % (Auto) [place] % (Auto) Eos % (Auto) Baso % (Auto) Neut # (Auto) Lymph # (Auto) [place] # (Auto) Eos # (Auto) Baso # (Auto) Nucleated RBC % (a uto) Nucleated RBCs # Sodium Potassium Chloride Carbon Dioxide Anion Gap BUN Creatinine GFR Calculation Glucose Calculated Osmolal ity Lactic Acid Calcium Total Bilirubin AST ALT Alkaline Phosphata se Troponin T Baselin e 9 ng/L ng/L (0-15) Troponin T 120 Min [place] Troponin T Total Protein Albumin Globulin Lipase Urine Color Yellow (Yellow) Urine Appearance Clear (CLEAR) Urine pH 5 (5-7) Ur Specific Gravit y 1.015 (1.005-1.030) Urine Protein Neg (Negative) Urine Glucose (UA) Norm (Normal) Urine Ketones Negative (Negative) Urine Blood Neg (Negative) Urine Nitrate Negative (Negative) Urine Bilirubin Neg (Negative) Urine Urobilinogen Norm mg/dL mg/dL (Negative) Ur Leukocyte Veronique ase Negative (Negative) Salicylates Urine Opiates Scre en Acetaminophen Ur Barbiturates Sc reen Ur Phencyclidine S crn Ur Amphetamines Sc reen U Benzodiazepines Scrn Urine Cocaine Scre en U Marijuana (THC) Screen Ethyl Alcohol 246 mg/dL H mg/dL (0-10) 08/04/21 08/04/21 20:35 20:36 WBC RBC Hgb Hct MCV MCH MCHC RDW Plt Count MPV Neut % (Auto) Lymph % (Auto) [place] % (Auto) Eos % (Auto) Baso % (Auto) Neut # (Auto) Lymph # (Auto) [place] # (Auto) Eos # (Auto) Baso # (Auto) Nucleated RBC % (a uto) Nucleated RBCs # Sodium Potassium Chloride Carbon Dioxide Anion Gap BUN Creatinine GFR Calculation Glucose Calculated Osmolal ity Lactic Acid Calcium Total Bilirubin AST ALT Alkaline Phosphata se Troponin T Baselin e Troponin T 120 Min [place] 7.72 ng/L ng/L (0-15) Delta Troponin T -1.28 ABS# L ABS# (0-10) Total Protein Albumin Globulin Lipase Urine Color Urine Appearance Urine pH Ur Specific Gravit y Urine Protein Urine Glucose (UA) Urine Ketones Urine Blood Urine Nitrate Urine Bilirubin Urine Urobilinogen Ur Leukocyte Veronique ase Salicylates Urine Opiates Scre en Negative ng/mL ng /mL (Negative) Acetaminophen Ur Barbiturates Sc reen Negative ng/mL ng /mL (Negative) Ur Phencyclidine S crn Negative ng/mL ng /mL (Negative) Ur Amphetamines Sc reen Positive ng/mL H ng/mL (Negative) U Benzodiazepines Scrn Negative ng/mL ng /mL (Negative) Urine Cocaine Scre en Negative ng/mL ng /mL (Negative) U Marijuana (THC) Screen Negative ng/mL ng /mL (Negative) Ethyl Alcohol Discharge Plan Discharge Patient Disposition: Home Clinical Impression: Alcoholic intoxication, Methamphetamine abuse Condition: Stable Prescriptions: No Action Unable to Assess RF: 0 Discharge Orders: Discharge ED (Routine); Ordered 08/04/21 Ordered By: Bárbara Caldreon Discharge Diet: Advance as tolerated Discharge Activity: Resume usual activity Patient Instructions: Alcohol Intoxication (ED) Coding Level of Care Code ED Fuel Conversion Technician for Erickson Stout
[2021-08-04] MEDS: sodium chloride 0.9% 1,000 ML 999 ML IV (17:44)
[2021-08-04 17:51] LABS: Basophils % 0.3 %; Eosinophils % 0.4 %; Hematocrit 42.1 % (42.0-52.0); Hemoglobin 13.8 g/dL (11.7-16.6); Lymphocytes # 3.2 10^3/uL (0.8-4.8); Lymphocytes % 33.2 %; Mean Corpuscular HGB Conc 32.8 g/dL (30.0-36.0); Mean Corpuscular Hemoglobin 30.8 pg (28.0-34.0); Mean Platelet Volume 9.9 fL (7.4-10.4); Monocytes # 0.5 10^3/uL (0.2-0.9); Monocytes % 4.9 %; Neutrophils # 5.88 10^3/uL (1.8-7.7); Neutrophils % 60.9 %; Nucleated Red Blood Cells % 0 %; Platelet Count 283 10^3/cmm (130-400); Red Blood Count 4.48 10^6/uL (4.1-5.3); Red Cell Distribution Width 12.9 % (12.1-15.1); White Blood Count 9.7 10^3/uL (4.0-10.0)
[2021-08-04 18:11] LABS: Troponin(5th) Baseline 9 ng/L (0-15)
[2021-08-04 18:19] LABS: Alanine Aminotransferase 62 U/L (0-41); Albumin Level 4.2 g/dL (3.5-5.2); Alkaline Phosphatase 108 IU/L (40-130); Anion Gap 18.8 (5-19); Aspartate Amino Transferase 42 U/L (0-40); Blood Urea Nitrogen 11 mg/dL (6-20); Calcium 8.2 mg/dL (8.5-10.5); Carbon Dioxide 20 mmol/L (22-29); Chloride 104 mmol/L (98-107); Globulin 2.5 g/dL (1.3-4.6); Glomerular Filtration Rate 64.4 mL/min (90-130); Glucose 109 mg/dL (65-115); Lipase 23 U/L (13-60); Osmolality Calculated 288 mOsm/kg (285-295); Potassium 3.8 mmol/L (3.5-5.1); Sodium 139 mmol/L (136-145); Total Bilirubin 0.2 mg/dL (0.15-1.2); Total Protein 6.7 g/dL (6.6-8.7)
[2021-08-04 18:22] LABS: Acetaminophen < 5.0 ug/mL (10-30); Salicylate < 0.3 mg/dL (3-10)
[2021-08-04 18:24] LABS: Lactic Sepsis W/Reflex 1.9 mmol/L (0.5-2.2)
[2021-08-04 19:21] LABS: Alcohol Level 246 mg/dL (0-10)
[2021-08-04 20:50] LABS: Add Urine Microscopic? NO; Charge for UA Resulting for Rev
[2021-08-04 21:00] LABS: Specific Gravity, Urine 1.015 (1.005-1.030); Urine Appearance Clear (CLEAR); Urine Color Yellow (Yellow); pH Urine 5 (5-7)
[2021-08-04 21:01] LABS: Bilirubin Urine Neg (Negative); Blood Urine Neg (Negative); Glucose Urine UA Norm (Normal); Ketones Urine Negative (Negative); Leukocyte Esterase Urine Negative (Negative); Nitrate Urine Negative (Negative); Protein Urine Neg (Negative); Urobilinogen Urine Norm (Negative)
[2021-08-04] MEDS: ondansetron 2 mg/ML SDV 2 mL 4 MG IVP (21:06)
[2021-08-04] MEDS: multivitamin therapeutic Tablet 1 TAB PO (21:06)
[2021-08-04 21:07] LABS: Amphetamines Screen Urine Positive (Negative); Barbiturates Screen Urine Negative (Negative); Benzodiazepines Screen Urine Negative (Negative); Cocaine Screen Urine Negative (Negative); Opiate Screen Urine Negative (Negative); PCP Screen Urine Negative (Negative); THC Screen Urine Negative (Negative)
[2021-08-04 21:18] LABS: Troponin 5 2HR 7.72 ng/L (0-15)
[2021-08-04 21:27] LABS: Troponin 5 2HR Delta -1.28 ABS# (0-10)
[2021-08-04 22:45] VITALS: BP 140/86; PULSE 68; RESP 18; O2SAT 100
== END 2021-08-04 22:46 | disposition home or self-care (01) ==
PROVIDERS: Family Medicine; Emergency Provider Emergency Medicine
DX: F10.129 Alcohol abuse with intoxication, unspecified (principal); F15.10 Other stimulant abuse, uncomplicated; I10 Essential (primary) hypertension; F17.210 Nicotine dependence, cigarettes, uncomplicated; Y90.8 Blood alcohol level of 240 mg/100 ml or more
CPT/HCPCS: 70450; 71045; 80053; 80306; 80307; 81003; 83605; 83690; 84484; 85025; 93005; 96361; 96372; 96374; 99284; J2405; J3411; J7030

== ENCOUNTER → 2022-01-01 09:30 | Outpatient (BNVA) | payer MEDICAID, SELFPAY | PROVIDERS: Visit Provider Nurse Practitioner Psychiatric/Mental Health | DX: F33.1 Major depressive disorder, recurrent, moderate (principal); F41.1 Generalized anxiety disorder; F17.210 Nicotine dependence, cigarettes, uncomplicated; F43.12 Post-traumatic stress disorder, chronic | CPT/HCPCS: 90792 ==

== ENCOUNTER → 2022-02-18 12:34 | Outpatient (BNVA) | payer OTHER, SELFPAY | PROVIDERS: Visit Provider Nurse Practitioner Psychiatric/Mental Health | DX: F17.210 Nicotine dependence, cigarettes, uncomplicated (principal); F33.1 Major depressive disorder, recurrent, moderate; F43.12 Post-traumatic stress disorder, chronic; F41.1 Generalized anxiety disorder; Z03.89 Encounter for observation for other suspected diseases and conditions ruled out | CPT/HCPCS: 80053; 80061; 80306; 83036; 99214 ==

== ENCOUNTER → 2022-05-03 13:38 | Outpatient (BNVA) | payer OTHER, SELFPAY | PROVIDERS: PCP Family Medicine Adult Medicine; Visit Provider Nurse Practitioner Psychiatric/Mental Health | DX: F31.64 Bipolar disorder, current episode mixed, severe, with psychotic features (principal); F41.1 Generalized anxiety disorder; F43.12 Post-traumatic stress disorder, chronic; F17.210 Nicotine dependence, cigarettes, uncomplicated; Z79.899 Other long term (current) drug therapy | CPT/HCPCS: 80053; 84443 ==

== ENCOUNTER → 2022-05-21 14:25 | Outpatient (BNVA) | payer OTHER, SELFPAY | PROVIDERS: PCP Family Medicine Adult Medicine; Visit Provider Nurse Practitioner Psychiatric/Mental Health | DX: Z03.89 Encounter for observation for other suspected diseases and conditions ruled out (principal); Z79.899 Other long term (current) drug therapy; F31.64 Bipolar disorder, current episode mixed, severe, with psychotic features; F41.1 Generalized anxiety disorder; F43.12 Post-traumatic stress disorder, chronic; F17.210 Nicotine dependence, cigarettes, uncomplicated | CPT/HCPCS: 80053; 80307 ==

== ENCOUNTER → 2022-06-02 14:56 | Outpatient (BNVA) | payer OTHER, SELFPAY | PROVIDERS: PCP Family Medicine Adult Medicine; Visit Provider Nurse Practitioner Psychiatric/Mental Health | DX: Z03.89 Encounter for observation for other suspected diseases and conditions ruled out (principal); F31.64 Bipolar disorder, current episode mixed, severe, with psychotic features; F41.1 Generalized anxiety disorder; F43.12 Post-traumatic stress disorder, chronic; F17.210 Nicotine dependence, cigarettes, uncomplicated; Z79.899 Other long term (current) drug therapy | CPT/HCPCS: 80178 ==

== ENCOUNTER → 2022-06-04 15:43 | Outpatient (BNVA) | payer OTHER, SELFPAY | PROVIDERS: PCP Family Medicine Adult Medicine; Visit Provider Nurse Practitioner Psychiatric/Mental Health | DX: Z79.899 Other long term (current) drug therapy (principal) | CPT/HCPCS: 80053; 80178 ==

== ENCOUNTER → 2022-06-14 15:24 | Outpatient (BNVA) | payer OTHER, SELFPAY | PROVIDERS: PCP Family Medicine Adult Medicine; Visit Provider Nurse Practitioner Psychiatric/Mental Health | DX: F31.64 Bipolar disorder, current episode mixed, severe, with psychotic features (principal); F41.1 Generalized anxiety disorder; F43.12 Post-traumatic stress disorder, chronic; F17.210 Nicotine dependence, cigarettes, uncomplicated; Z79.899 Other long term (current) drug therapy | CPT/HCPCS: 80053 ==

== ENCOUNTER → 2022-07-26 13:58 | Outpatient (BNVA) | payer OTHER, SELFPAY | PROVIDERS: PCP Family Medicine Adult Medicine; Visit Provider Nurse Practitioner Psychiatric/Mental Health | DX: Z79.899 Other long term (current) drug therapy (principal); F31.64 Bipolar disorder, current episode mixed, severe, with psychotic features; F41.1 Generalized anxiety disorder; F43.12 Post-traumatic stress disorder, chronic; F17.210 Nicotine dependence, cigarettes, uncomplicated | CPT/HCPCS: 80053 ==

== ENCOUNTER → 2022-09-08 15:09 | Outpatient (BNVA) | payer OTHER, SELFPAY | PROVIDERS: PCP Family Medicine Adult Medicine; Visit Provider Nurse Practitioner Psychiatric/Mental Health | DX: Z79.899 Other long term (current) drug therapy (principal); F31.64 Bipolar disorder, current episode mixed, severe, with psychotic features; F41.1 Generalized anxiety disorder | CPT/HCPCS: 80053; 80178; 80307 ==

== ENCOUNTER 2023-02-02 13:47 | Outpatient (CLI) | payer MEDICAID, SELFPAY ==
--- NOTE | 2023-02-02 13:58 | XR_ITS ---
WS: [id number] XR ribs RT 2V* [id number] REASON FOR EXAM: rib pain right side FINDINGS: No right rib fracture is identified. No abnormality of the underlying right lung or pleura is noted. XR/XR ribs RT 2V* [id number] IMPRESSION: No acute abnormality.
--- NOTE | 2023-02-02 13:58 | XR_ITS ---
WS: [id number] XR shoulder RT min 2V* [id number] REASON FOR EXAM: right shoulder pain, loss of ROM FINDINGS: No fracture identified. The acromial clavicular joint spaces intact with mild subchondral sclerosis and osteophytosis. Normal AC joint alignment. Glenohumeral joint is intact without significant narrowing. No soft tissue abnormality. 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 No acute abnormality.
== END 2023-02-02 13:48 | disposition home or self-care (01) ==
LOC: RAD 13:50
PROVIDERS: PCP Family Medicine Adult Medicine; Visit Provider Nurse Practitioner Family
DX: R07.81 Pleurodynia (principal); M19.011 Primary osteoarthritis, right shoulder
CPT/HCPCS: 71100; 73030

== ENCOUNTER → 2023-03-14 13:40 | Outpatient (BNVA) | payer OTHER, SELFPAY | PROVIDERS: PCP Family Medicine Adult Medicine; Visit Provider Nurse Practitioner Psychiatric/Mental Health | DX: F31.64 Bipolar disorder, current episode mixed, severe, with psychotic features (principal); F41.1 Generalized anxiety disorder; F43.12 Post-traumatic stress disorder, chronic; F17.210 Nicotine dependence, cigarettes, uncomplicated; Z79.899 Other long term (current) drug therapy | CPT/HCPCS: 80053; 80061; 83036 ==

== ENCOUNTER 2023-08-02 11:49 | Emergency (ER) | payer MEDICAID, SELFPAY ==
--- NOTE | 2023-08-02 11:50 | XR_ITS ---
WS: [id number] Exam: XR wrist RT min 3V* [id number] Date/Time of Exam: 08/02/2023 11:58 AM Reason For Exam: injury Comparison 12/07/2020. No wrist fracture or dislocation. Soft tissues are unremarkable. Plate and screw fixation of the fift h CMC joint with associated degenerative change. Subcortical cyst formation in the lunate. IMPRESSION: 1. No wrist fracture or dislocation.
[2023-08-02 12:04] VITALS: BP 152/95; PULSE 90; RESP 18; TEMP 36.6; O2SAT 97; BMI 31.6
[2023-08-02 12:15] VITALS: BP 156/91; PULSE 71; RESP 18; O2SAT 100
--- NOTE | 2023-08-02 12:18 | W.ED.EXTPRO ---
HPI - Extremity Problem General: Chief complaint: Extremity Injury, Upper Stated complaint: hurt right wrist Time Seen by Provider: 08/02/23 12:15 Source: patient Mode of arrival: ambulatory Limitations: no limitations History of Present Illness: 53-year-old male states he is cut down labs in the lab fell down and hit him in his right wrist he has some slight pain over his right wrist he rates a 5 out of 10 small abrasion states his last tetanus was over 5 years ago he denies any other injuries. Associated symptoms: Deny chest pain, fever(s) or rash Review of Systems Const: Denies: fever(s), chills, body aches or change in appetite ENMT: Denies: throat pain or dental pain Card: Denies: chest pain Resp: Denies: dyspnea GI: Denies: abdominal pain Musc: Reports: extremity pain; Denies: neck pain or back pain Skin/Breast: Denies: rash Neuro: Denies: headache(s) PFSH ED PFSH: Medical History Nodule of skin of left lower leg Chest wall pain Hyperlipidemia Lipoma of head Elevated liver enzymes CKD (chronic kidney disease) stage 2, GFR 60-89 ml/min Bipolar affective disorder, mixed, severe, with psychotic behavior Chronic post-traumatic stress disorder Cigarette nicotine dependence Generalized anxiety disorder Psychiatric care Hypertension Surgical History No significant past surgical history Family History Grandmother Dementia Mother Lung disease emphysema Denies family history of Diabetes CAD (coronary artery disease) Clotting disorder Hyperlipidemia Chronic kidney disease (CKD) Anesthesia complication Bleeding disorder Cancer Hypertension Stroke Social History Smoking and tobacco/nicotine status: current every day tobacco/nicotine user (0.5 ppd) cigarettes Packs smoked per day: 0.60 Years cigarettes smoked: 37 Quit status (tobacco/nicotine): has tried quititng Number of times tried to quit tobacco: 4 Second hand smoke exposure: Yes Alcohol intake: current Alcohol intake frequency: holidays/special occasions only Alcohol type: beer Substance/Drug Use: never Caregiver/support person: No Lives independently: Yes Housing: Other Marital status: Single service: No Current occupational status: unemployed and disabled Do you think of yourself as: Straight/Heterosexual Current gender identity: Male Special hugh needs: No Agree to transfusion: Yes Physical Exam Const: COMMON NORMALS: no acute distress, patient oriented x3 and healthy appearing HENMT: COMMON NORMALS: normocephalic and atraumatic HEAD & SCALP: normocephalic and atraumatic Neck/C-Spine: COMMON NORMALS: full ROM and supple Chest: COMMONS NORMALS: normal inspection of the chest Resp: COMMON NORMALS: normal respiratory effort Extremity: COMMON NORMALS: full ROM NARRATIVE EXTREMITY EXAM: Abrasion to right wrist slight tenderness no obvious deformity Neuro: COMMON NORMALS: patient oriented x3, moves all extremities and no focal motor deficits Psych: COMMON NORMALS: mental status grossly normal, Normal thought process present and cooperative THOUGHT PROCESS: Normal thought process present Skin: COMMON NORMALS: no rashes or lesions noted and no wounds GENERAL SKIN EXAM: no rashes or lesions noted Course Vital Signs: Vital signs: Vital Signs Temperature 97.9 F 08/02/23 12:04 Pulse Rate 71 08/02/23 12:15 Respiratory Rate 18 08/02/23 12:15 Blood Pressure 156/91 08/02/23 12:15 Pulse Oximetry 100 08/02/23 12:15 Oxygen Delivery Me thod Room Air 08/02/23 12:04 MDM - Extremity (Nontraumatic) Medical Decision Making Patient presents here contusion along with abrasion to right wrist x-ray shows no fracture he has no laceration did update his tetanus he is stable for discharge follow-up with PCP and return if worsening. Medical Records I reviewed the patient's medical records. Lab Data I reviewed the patient's lab results. All radiology interpretation(s) finalized by discharge Discharge Plan Discharge Patient Disposition: Home Clinical Impression: Contusion of right wrist Qualifiers: Encounter type: initial encounter Qualified Code(s): S60.211A - Contusion of right wrist, initial encounter Condition: Stable Prescriptions: New naproxen [Naprosyn] 500 mg tablet 500 mg PO BID PRN (Reason: pain) Qty: 20 0RF No Action naproxen 500 mg tablet 500 mg PO BID Qty: 60 1RF Rx Instructions: take with food aripiprazole [Abilify] 20 mg tablet 20 mg PO .10 am Qty: 30 4RF Rx Instructions: Take one tablet at 10 am atenolol 100 mg tablet 100 mg PO .morning Qty: 30 5RF Rx Instructions: Take one tablet every morning Discharge Orders: Discharge ED (Routine); Ordered 08/02/23 Ordered By: Bárbara Calderon Referrals: Ryan Sellers MD [Primary Care Provider] - 1-3 days Discharge Diet: Advance as tolerated Discharge Activity: Resume usual activity Patient Instructions: Contusion in Adults (ED) Coding Level of Care Code ED Elevator Operator Service for Erickson Stout
[2023-08-02] MEDS: tetanus-dipt-pertussis 0.5 mL SDV IM (12:30)
== END 2023-08-02 12:31 | disposition home or self-care (01) ==
PROVIDERS: Emergency Provider Emergency Medicine; PCP Family Medicine Adult Medicine
DX: S60.211A Contusion of right wrist, initial encounter (principal); F17.210 Nicotine dependence, cigarettes, uncomplicated; E78.5 Hyperlipidemia, unspecified; I12.9 Hypertensive chronic kidney disease with stage 1 through stage 4 chronic kidney disease, or unspecified chronic kidney disease; N18.2 Chronic kidney disease, stage 2 (mild); W20.8XXA Other cause of strike by thrown, projected or falling object, initial encounter; Z23 Encounter for immunization
CPT/HCPCS: 73110; 90471; 90715; 99283

== ENCOUNTER 2023-12-06 08:58 | Outpatient (CLI) | payer MEDICAID, SELFPAY ==
--- NOTE | 2023-12-06 09:15 | USCV_ITS ---
Alen Sage (Misael) Age: 53 Gender: M : 1970 Exam Date: 12/06/2023 09:08 Ordering Phys: Ryan Sellers MD Technologist: CT Exam Location: [facility] – [place] Indication: vision problems Risk Factors: Previous Vascular Surgery: Right Brachial BP: / Left Brachial BP: / Right Left Velocity (cm/s) Spectral Plaque Velocity (cm/s) Spectral Plaque Syst/Diast Broadening Syst/Diast Broadening 100.90/18.00 Prox CCA 88.40 / 31.70 68.50/ 18.00 Mid CCA 82.00 / 32.70 63.40/ 23.20 Distal CCA 74.40 / 30.70 50.10/ 25.60 Prox ICA 90.00 / 35.90 79.70/ 38.50 Mid ICA 61.80 / 22.60 70.50/ 34.60 Distal ICA 61.70 / 30.80 78.70 ECA 88.20 1.30 ICA/CCA 1.20 Antegrade Vertebral Antegrade 52.10/ 23.00 cm/s 28.30/ 12.00 cm/s Tri Subclavian Tri 108.0 156.0 0 0 CONCLUSIONS Right ICA stenosis <50%. Mild atheromatous plaque right carotid bulb/ICA. Left ICA stenosis <50%. Mild atheromatous plaque left carotid bulb/ICA. Normal antegrade Doppler flow noted in the right vertebral artery. Normal antegrade Doppler flow noted in the left vertebral artery. Wu Bridges MD (Electronically Signed) Final Date: 06 December 2023 11:41 S
== END 2023-12-06 08:59 | disposition home or self-care (01) ==
LOC: RAD 08:58
PROVIDERS: PCP Family Medicine Adult Medicine; Visit Provider Family Medicine Adult Medicine
DX: H53.121 Transient visual loss, right eye (principal); E78.5 Hyperlipidemia, unspecified; I10 Essential (primary) hypertension; I65.23 Occlusion and stenosis of bilateral carotid arteries
CPT/HCPCS: 93880

== ENCOUNTER 2024-02-02 06:19 | Outpatient (CLI) | payer MEDICAID, SELFPAY ==
--- NOTE | 2024-02-02 06:45 | USCV_ITS ---
Alen Sage (Misael) Age: 53 Gender: M : 1970 Exam Date: 02/02/2024 06:26 Ordering Phys: Jb Fofana MD ([email or web address]) Technologist: [place] [facility] [place]: htn BP: 190 / 100 HR: 81 Rhythm: Sinus Technical Quality: Adequate MEASUREMENTS (Male / Female) Normal Values 2D ECHO LV Diastolic Diameter PLAX 4.2 cm 4.2 - 5.9 / 3.9 - 5.3 cm IVS Diastolic Thickness 1.3 cm 0.6 - 1.0 / 0.6 - 0.9 cm IVS Systolic Thickness 1.6 cm LVPW Diastolic Thickness 1.5 cm 0.6 - 1.0 / 0.6 - 0.9 cm LVPW Systolic Thickness 1.8 cm LVOT Diameter 2.0 cm LV Ejection Fraction 2D Teich 51.4 % LV Ejection Fraction MOD 2C 64.8 % LV Ejection Fraction 2C AL 66.8 % LA Diameter 3.5 cm RA Systolic Volume 4C AL 50.5 ml RA Systolic Volume 4C MOD 52.0 ml Aorta at Sinotubular Diameter 4.2 cm IVC Diameter 2.6 cm M-MODE LA Ao Ratio MM 1.0 AV Cusp Separation MM 3.6 cm DOPPLER LVOT Peak Velocity 91.0 cm/s AV Area Cont Eq vti 2.2 cm squared AV Area Cont Eq pk 2.9 cm squared MV Peak Velocity 59.0 cm/s MV Area PHT 3.7 cm squared Mitral E to A Ratio 0.8 TR Peak Velocity 205.0 cm/s TR Peak Gradient 16.8 mmHg TV Peak E Velocity 77.0 cm/s Right Atrial Pressure 3.0 mmHg Pulmonary Artery Systolic Pressu 19.8 mmHg FINDINGS Left Ventricle Normal left ventricular size and systolic function, EF 65%.no regional wall motion abnormalities. Right Ventricle The right ventricle is normal in size and function. Right Atrium The right atrium is normal in size. Left Atrium The left atrium is normal in size. Mitral Valve No gross abnormalities noted Aortic Valve No gross abnormalities noted Tricuspid Valve Trace tricuspid valve regurgitation. Pulmonic Valve No gross abnormalities noted Pericardium Normal pericardium without effusion. Aorta Normal ascending aorta dimension. IVC The inferior vena cava appears normal. CONCLUSIONS Normal left ventricular size and systolic function, EF 65%.no regional wall motion abnormalities. Trace tricuspid valve regurgitation. Normal cardiac chamber sizes. No gross valvular abnormalities There is no pericardial effusion. There are no intracardiac masses. No similar previous studies are available for comparison Dr Aubree Nguyen MD FACC (Electronically Signed) Final Date: 02 February 2024 20:21 S
== END 2024-02-02 06:20 | disposition home or self-care (01) ==
PROVIDERS: PCP Family Medicine Adult Medicine; Visit Provider Internal Medicine Cardiovascular Disease
DX: I10 Essential (primary) hypertension (principal); F17.210 Nicotine dependence, cigarettes, uncomplicated; E78.5 Hyperlipidemia, unspecified
CPT/HCPCS: 93306

== ENCOUNTER → 2024-02-03 14:18 | Outpatient (BNVA) | payer MEDICAID, SELFPAY | PROVIDERS: PCP Family Medicine Adult Medicine; Visit Provider Family Medicine Adult Medicine | DX: I10 Essential (primary) hypertension (principal); N18.2 Chronic kidney disease, stage 2 (mild); F31.64 Bipolar disorder, current episode mixed, severe, with psychotic features; E78.5 Hyperlipidemia, unspecified; F41.1 Generalized anxiety disorder; E78.2 Mixed hyperlipidemia; R74.8 Abnormal levels of other serum enzymes; F17.210 Nicotine dependence, cigarettes, uncomplicated | CPT/HCPCS: 80053; 84443; 85025 ==

== ENCOUNTER → 2024-05-14 12:11 | Outpatient (BNVA) | payer OTHER, SELFPAY | PROVIDERS: PCP Family Medicine Adult Medicine; Visit Provider Nurse Practitioner Psychiatric/Mental Health | DX: Z79.899 Other long term (current) drug therapy (principal) | CPT/HCPCS: 80053; 80061; 83036 ==

== ENCOUNTER → 2025-02-28 11:38 | Outpatient (BNVA) | payer OTHER, MEDICAID, SELFPAY | PROVIDERS: PCP Family Medicine; Visit Provider Family Medicine | DX: I10 Essential (primary) hypertension (principal); I65.23 Occlusion and stenosis of bilateral carotid arteries; E78.2 Mixed hyperlipidemia; R73.03 Prediabetes; N18.2 Chronic kidney disease, stage 2 (mild) | CPT/HCPCS: 80053; 83036; 84439; 84443; 85025 ==